=== PATIENT | male | born 1990 | race Caucasian/White ===

== ENCOUNTER 2016-10-07 08:54 | Emergency (ER) | payer OTHER ==
[~2016-10-07] VITALS: Ht 198.1 cm; Wt 123.8 kg
[~2016-10-07 08:54] MED LIST: BACLOFEN10 MG PO; BACLOFEN20 MG PO; BACTRIM DS TAB1 EACH PO; DAYPRO600 MG PO; FLEXERIL10 MG PO; GABAPENTIN300 MG PO; HYDROCODON-ACE1 EA10 PO; HYDROCODON-ACE1 EAC8 PO; IBUPROFEN800 MG PO; KEFLEX500 MG PO; MELOXICAM15 MG PO; METHOCARBAMOL750 MG PO; PENICILLIN V P500 MG PO; PEPTO-BISMOL262 M1 PO; PERCOCET 10-321 EACH PO; PROTONIX40 MG PO; ROBAXIN-750750 MG PO; TUMS200 MG PO; VICODIN 5-5001 EACH PO
== END 2016-10-07 10:21 | disposition home or self-care (01) ==
LOC: ED 08:54
DX: S60.111A Contusion of right thumb with damage to nail, initial encounter (principal); F17.200 Nicotine dependence, unspecified, uncomplicated; Z88.8 Allergy status to other drugs, medicaments and biological substances; W23.0XXA Caught, crushed, jammed, or pinched between moving objects, initial encounter
CPT/HCPCS: 73130; 99283

== ENCOUNTER 2023-03-20 06:00 | Day surgery (SDC) | payer BC, OTHER ==
[2023-03-07 15:39] VITALS: BP 146/87
[~2023-03-20] VITALS: Ht 198.1 cm; Wt 150.0 kg
[~2023-03-20 06:00] MED LIST changes: +IBUPROFEN200 M1 PO; +PROMETHAZINE HC25 M1 PO; +PROMETHAZINE HC25 MG PR; +TAMIFLU75 MG PO; +TYLENOL325 MG PO
[2023-03-20 06:13] VITALS: BP 152/82
--- NOTE | 2023-03-20 07:37 | NUR ---
DS ROUNDS. PT AND PRESS SET UP EXHIBITED STRONG RELATIONAL RESOURCES. STATED NOT SIKH. DECLINED PRAYER AT BEDSIDE. PROVIDED HOSPITALITY; GAVE PAGER #[phone]. PROVIDED SILENT PRAYER IN HALLWAY.
--- NOTE | 2023-03-20 09:11 | NUR ---
03/20/23 0911 Romy Pelaez 0855: PATIENT ARRIVES TO PACU WITH AN ORAL AIRWAY IN PLACE. NO FOG IS NOTED TO PATIENT'S MASK AND PATIENT'S BREATHS ARE AGONAL, SHALLOW. JAW THRUST OPENS AIRWAY AND FOG IS NOTED. UPPER AIRWAY STRIDOR IS HEARD. ORAL AIRWAY EXCHANGED FOR NASAL AIRWAY AND PATIENT SETTLES AND UPPER AIRWAY SOUNDS CEASE. PATIENT RETURNS TO RESTING QUIETLY WITH HIS EYES CLOSED. CRISTAL RED, BLOODY DRAINAGE IS NOTED TO LEFT TAOISM AREA AND RIGHT POSTERIOR SCALP. 0906: PATIENT WAKES QUICKLY. HE REACHES FOR THE NASAL AIRWAY AND I REMOVE IT. OXYGEN IS REMOVED AT THIS TIME. PATIENT ACKNOWLEDGES BEING DONE WITH SURGERY WITH THE NOD OF HIS HEAD AND HE DENIES PAIN. 0908: DR PIERRE IS AT THE BEDSIDE AND PATIENT'S QUESTIONS ARE ANSWERED.
[2023-03-20 09:25] VITALS: BP 141/83
--- NOTE | 2023-03-20 09:32 | NUR ---
0918 PT RETURNED FROM PACU TO DAY SURGERY VIA STRECHER TO ROOM. RECEIVED BEDSIDE HANDOFF REPORT FROM REGULO Griffith RN. PT AWAKE AND ORIENTED. VITALS TAKEN. PT REPORTS NO NAUSEA OR PAIN. BREATHING EQUAL AND UNLABORED. IV SALINE LOCKED. 0930 PT GOT UP AND WALKED AROUND THE ROOM WITH NO DIZZINESS OR NAUSEA. PT HAS CRACKERS AND WATER AT BEDSIDE, CALL LIGHT WITHIN REACH.
[2023-03-20 10:10] VITALS: BP 134/85
--- NOTE | 2023-03-20 10:24 | NUR ---
1015 PT VITALS TAKEN. PT TOLERATING FOOD AND WATER PO WELL. NO NAUSEA REPORTED. PT HAS NO PAIN. PT ABLE TO DRESS ON OWN. IV DEACCESSED. BREATHING EQUAL AND UNLABORED. PT POST OP VOID 125 MLS. 1018 DISCHARGE PAPERWORK GONE OVER WITH PT AND GIRLFRIEND AT BED SIDE. PT HAS NO FURTHER QUESTIONS AT THIS TIME. PT TAKEN OUT TO GIRLFRIEND IN CAR VIA WHEEL CHAIR.
--- NOTE | 2023-03-20 10:25 | OR ---
[facility] [address] [place], [place] [address] Signed DATE OF OPERATION: 03/20/2023 SURGEON: Eric Pierre MD PREOPERATIVE DIAGNOSES: 1. 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 2. An 8 mm left faith Pilar cyst. POSTOPERATIVE DIAGNOSES: 1. 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 2. An 8 mm left faith Pilar cyst. PROCEDURE: Excision of Pilar cyst x2. ESTIMATED BLOOD LOSS: Minimal. INDICATIONS: Carlito is a 32-year-old gentleman, who has come to me before to have Pilar cyst removed. He now has a Pilar cyst on the left anterior faith about 8 mm in diameter and the one in the right occipital area is about 12 mm after being excised. He said he can remember the surgery. He said he has a lot of anxiety and it is hard for him actually not have a panic attack in our preop area. He understands the expected intraop and postop course, there is risk including, but not limited to bleeding, infection, scarring, change in contour of the skin as well as recurrent Pilar cyst in the same or other locations. He had expressed understanding and wished to proceed. DESCRIPTION OF PROCEDURE: I met with Carlito, his girlfriend, and our nurse in the preop area. We easily identified the two Pilar cysts and marked them appropriately. After this, we took Carlito into the operating room and placed him in a supine position under general LMA anesthesia. We initially rotated his head to the left in the supine position and approached the Pilar cyst in the right occipital area. We prepped and draped the area in the usual sterile fashion. An incision was made over that with #15 blade knife and carried down with the help of the cautery. We then bluntly went around the Pilar cyst with our hemostats. As always, there was quite a bit of bleeding, which we controlled with the cautery. We then used 2-0 and 3-0 nylon vertical mattress sutures to close the incision. Incision was left open to air. After this, we placed some dry gauze over the area and rotated his head back to the right side. We then prepped and draped his left Electronically Signed By: ERIC PIERRE MD 03/20/23 1025 PATIENT NAME: CARLITO DICKSON OPERATIVE REPORT DATE OF : 89 REPORT #: [id number] PHYSICIAN: ERIC PIERRE MD PCP: ALBA ISABEL REPORT IS CONFIDENTIAL AND NOT TO BE RELEASED WITHOUT AUTHORIZATION [facility] [address] [place], [place] [address] Signed faith area. We had made an incision over that Pilar cyst in the same manner, used cautery and hemostats to remove that Pilar cyst in the cyst wall. Same thing, we controlled the hemostasis with some cautery and closed with interrupted 3-0 nylon vertical mattress sutures. We injected local anesthetic into both areas. After this, Carlito was awakened from his anesthesia, extubated in the OR, and taken to the recovery room in stable condition. Eric Pierre MD ALB/MODL /[id number] cc: Alba Isabel, Nurse Practitioner Eric Pierre MD Patient Chart Copies: ERIC PIERRE MD ~ Electronically Signed By: ERIC PIERRE MD 03/20/23 1025 PATIENT NAME: CARLITO DICKSON OPERATIVE REPORT DATE OF : [birth year] REPORT #: [id number] PHYSICIAN: ERIC PIERRE MD PCP: ALBA ISABEL-Aren REPORT IS CONFIDENTIAL AND NOT TO BE RELEASED WITHOUT AUTHORIZATION
== END 2023-03-20 10:18 | disposition home or self-care (01) ==
LOC: DS 06:00
PROVIDERS: ATTEND Colon & Rectal Surgery
PROC: 0HB0XZZ Excision of Scalp Skin, External Approach (ICD-10-PCS; principal; 2023-03-20 07:30)
DX: L72.11 Pilar cyst (principal); Z87.891 Personal history of nicotine dependence; Z88.8 Allergy status to other drugs, medicaments and biological substances
CPT/HCPCS: 00300; J0690; J1100; J1885; J2250; J2405; J2704; J2765; J3010; J7121